=== PATIENT | male | born 1945 | race Caucasian/White ===

== ENCOUNTER 2017-06-14 10:44 | Emergency (ER) | payer OTHER ==
[~2017-06-14] VITALS: Ht 162.6 cm; Wt 65.6 kg
[2017-06-14 11:05] LABS: APPEARANCE CLEAR ((CLEAR)); BILIRUBIN NEGATIVE; BLOOD NEGATIVE; COLOR YELLOW ((YELLOW)); GLUCOSE (STRIP) NEGATIVE; KETONES NEGATIVE; LEUKOCYTES NEGATIVE; NITRITE NEGATIVE; PROTEIN (STRIP) NEGATIVE; SPECIFIC GRAVITY 1.021 (1.000-1.030); UROBILINOGEN 0.2 MG/DL (0.2-1.0)
[2017-06-14 11:17] LABS: BASOPHIL (%) 0.3 % (0-1); EOSINOPHIL (%) 1.4 % (0-5); EOSINOPHIL COUNT 0.1 K/uL (0-0.3); HEMATOCRIT 31.3 % (38.0-50.0); HEMOGLOBIN 10.3 G/DL (12.5-16.6); IMMATURE GRANULOCYTE (%) 0.3 % (0.0-0.7); LYMPHOCYTE (%) 11.8 % (15-42); LYMPHOCYTE COUNT 1.2 K/uL (1.0-2.8); MCH 33.7 PG (29.0-34.0); MCHC 32.9 G/DL (30.0-36.0); MCV 102.3 FL (86-99); MONOCYTE (%) 10.5 % (3-12); NEUTROPHIL (%) 75.7 % (45-76); NEUTROPHIL COUNT 7.4 K/uL (1.8-6.4); PLATELET COUNT 204 K/uL (156-360); RBC DIS.WIDTH-CV 12.3 % (11.8-14.6); RBC DIS.WIDTH-SD 46.6 % (39-53); RED BLOOD COUNT 3.06 M/uL (4.00-5.50); WHITE BLOOD COUNT 9.8 K/uL (4.1-10.2)
[2017-06-14 11:21] LABS: ALBUMIN 3.9 g/dL (3.2-4.8); CHLORIDE 108 mEq/L (99-109); POTASSIUM 4.2 mEq/L (3.7-5.4); SODIUM 135 mEq/L (136-147)
[2017-06-14 11:21] LABS: INTER. NORMALIZED RATIO 1.2
[2017-06-14 11:24] LABS: GLUCOSE 122 mg/dL (70-99); TOTAL PROTEIN 7.1 g/dL (6.4-8.3)
[2017-06-14 11:26] LABS: TOTAL BILIRUBIN 0.3 mg/dL (0.0-1.0)
[2017-06-14 11:27] LABS: ALKALINE PHOSPHATASE 69 IU/L (3-129); CREATININE 1.7 mg/dL (0.6-1.3)
[2017-06-14 11:28] LABS: UREA NITROGEN (BUN) 28 mg/dL (9-23)
[2017-06-14 11:29] LABS: AST (GOT) 12 IU/L (2-34); GFR ESTIMATE (CALCULATED) 43 mL/min/ (58.99-99999)
[2017-06-14 11:30] LABS: ALT (GPT) 9 IU/L (3-49)
[2017-06-14 11:31] LABS: LIPASE 21 U/L (1.0-51.0)
[2017-06-14] MEDS ORDERED: PROVENTIL HFA6.7 GM IH (13:09)
[2017-06-14] MEDS ORDERED: PREDNISONE50 MG PO (13:09)
[2017-06-14] MEDS ORDERED: LEVAQUIN750 MG PO (13:09)
[2017-06-14 14:05] VITALS: BP 137/64
== END 2017-06-14 14:05 | disposition home or self-care (01) ==
LOC: EME 10:44
PROVIDERS: Emergency Medicine
DX: J18.9 Pneumonia, unspecified organism (principal); J44.0 Chronic obstructive pulmonary disease with (acute) lower respiratory infection; F17.200 Nicotine dependence, unspecified, uncomplicated; I25.2 Old myocardial infarction; E78.5 Hyperlipidemia, unspecified; I10 Essential (primary) hypertension; Z95.5 Presence of coronary angioplasty implant and graft; Z95.1 Presence of aortocoronary bypass graft; Z79.02 Long term (current) use of antithrombotics/antiplatelets; F32.9 Major depressive disorder, single episode, unspecified
CPT/HCPCS: 71045; 71250; 80053; 81003; 83605; 83690; 85025; 85610; 87502; 94640; 99281; 99285; J7030